=== PATIENT | male | born 1970 | race Caucasian/White ===

== ENCOUNTER 2016-05-06 16:24 | Emergency (ER) | payer OTHER ==
[2016-05-06 16:52] VITALS: BP 100/55; PULSE 60; RESP 18; TEMP 97.8
[2016-05-06] MEDS ORDERED: ORPHENADRINE 30 MG/ML 2 ML VIAL IM STA (17:07)
[2016-05-06] MEDS ORDERED: KETOROLAC 60 MG/2 ML VIAL IM STA (17:07)
--- NOTE | 2016-05-06 17:11 | ED ---
General Adult HPI - General Chief complaint: Back Pain/Injury Stated complaint: Back Pain Time Seen by Provider: 05/06/16 16:58 Source: patient, RN notes reviewed Mode of arrival: ambulatory - History of Present Illness Initial comments: This is a 45-year-old male who presents with acute on chronic lower back pain. Patient states he's just been on his feet more at work and denies any trauma or injury to the lower back. Patient denies any change in bowel or bladder function, loss of sensation in the saddle area, numbness/tingling/weakness to bilateral lower or upper extremities. Patient denies any radicular pain. Patient states the pain is worse to the left side of his back. Patient is able to ambulate. Patient normally takes tramadol at home and states he has a pain contract with Dr. Cantrell. Patient denies any aspirin ALLERGY, history of asthma, kidney problems or bleeding ulcers. Patient denies any recent fever, chills, shortness breath, chest pain, abdominal pain, nausea/vomiting/diarrhea, hematuria, headache, or visual changes, or any other complaints. - Related Data Home Medications Medication Instructions Recorded Confirmed traMADol HCL [Ultram] 50 mg PO TID PRN 05/06/16 05/06/16 Allergies Allergy/AdvReac Type Severity Reaction Status Date / Time No Known Allergies Allergy Verified 05/06/16 17:04 Review of Systems ROS Statement: Those systems with pertinent positive or pertinent negative responses have been documented in the HPI. ROS Other: All systems not noted in ROS Statement are negative. Past Medical History Past Medical History: COPD Additional Past Medical History / Comment(s): chronic back and neck pain History of Any Multi-Drug Resistant Organisms: None Reported Past Surgical History: No Surgical Hx Reported Past Psychological History: No Psychological Hx Reported Smoking Status: Current every day smoker Past Alcohol Use History: None Reported Past Drug Use History: None Reported General Exam - General Exam Comments Initial Comments: General: The patient is awake and alert, in no distress, and does not appear acutely ill. Neck: The neck is supple, there is no tenderness or JVD. Cardiovascular: There is a regular rate and rhythm. No murmur, rub or gallop is appreciated. Respiratory: Lungs are clear to auscultation, respirations are non-labored, breath sounds are equal. No wheezes, stridor, rales, or rhonchi. Musculoskeletal: Patient has tenderness to the left side paraspinal muscles. Patient has full range of motion, strength 5/5 and Sensation intact. Radial pulses are 2+ bilaterally. Patient is ambulatory in the EC. Neurological: A&O x 3. CN II-XII intact, There are no obvious motor or sensory deficits. Coordination appears grossly intact. Speech is normal. Skin: Skin is warm and dry and no rashes or lesions are noted. Psychiatric: Normal mood and affect. Course Vital Signs 05/06/16 16:48 Temperature 97.8 F Pulse Rate 60 Respiratory 18 Rate Blood Pressure 100/55 O2 Sat by Pulse 99 Oximetry Medical Decision Making - Medical Decision Making This is a 45-year-old male presents with acute on chronic lower back pain. On physical exam patient has tenderness to the left side paraspinal muscles. Patient has full range of motion, strength 5/5 and Sensation intact. Radial pulses are 2+ bilaterally. Patient is ambulatory in the EC. Patient was given Toradol and Norflex in the EC today. Patient has tramadol at home for pain. I discussed heating pads. I discussed return parameters. I discussed the patient should follow-up with his primary care doctor in 1-2 days or return to the EC for any worsening symptoms or for any further concerns. Patient was receptive to this plan patient will be discharged home. Disposition Clinical Impression: Chronic back pain Disposition: HOME SELF-CARE Condition: Good Instructions: Chronic Back Pain (ED) Additional Instructions: Please use heating pads to the area. Please continue your normal at home pain medications. Please follow-up with family doctor in the next 2 days of symptoms have not improved. Please return to emergency room if the symptoms increase or worsen or for any other concerns. Referrals: None,Stated [Primary Care Provider] - 1-2 days Norberto Acosta MD [STAFF PHYSICIAN] - 1-2 days Time of Disposition: 17:11
== END 2016-05-06 17:22 | disposition home or self-care (01) ==
LOC: EC 16:24
DX: G89.29 Other chronic pain (principal); M54.5 Low back pain; F17.200 Nicotine dependence, unspecified, uncomplicated
CPT/HCPCS: 99283; 96372 ×2; J2360; J1885

== ENCOUNTER 2019-12-17 13:04 | Emergency (ER) | payer OTHER ==
[2019-12-17 13:09] VITALS: BP 145/73; PULSE 77; RESP 18; TEMP 97.3
[2019-12-17] MEDS ORDERED: KETOROLAC 15 MG/ML 1 ML VIAL IM STA (13:29)
[2019-12-17] MEDS ORDERED: LIDOCAINE 5% PATCH TOPICAL STA (13:30)
--- NOTE | 2019-12-17 13:31 | ED ---
General Adult HPI - General Chief complaint: Back Pain/Injury Stated complaint: back pain Time Seen by Provider: 12/17/19 13:05 Source: patient Mode of arrival: ambulatory Limitations: no limitations - History of Present Illness Initial comments: Patient is a 49-year-old male with past history of COPD and chronic back pain who presents to the emergency room with her back pain. 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 He was bending and lifting earlier this week when he had sudden onset of right-sided back pain. States it radiates into his right leg. Patient denies any weakness, numbness or tingling into his legs. No saddle anesthesia. No bowel or bladder incontinence. No fevers or chills. Denies drug use. Denies any anterior abdominal pain. No testicular pain or swelling. No other alleviating, Percepting or modifying factors - Related Data Home Medications Medication Instructions Recorded Confirmed traMADol HCL [Ultram] 50 mg PO TID PRN 05/06/16 05/06/16 Previous Rx's Medication Instructions Recorded Cyclobenzaprine [Flexeril] 10 mg PO TID PRN #15 tab 12/17/19 Allergies Allergy/AdvReac Type Severity Reaction Status Date / Time No Known Allergies Allergy Verified 12/17/19 13:06 Review of Systems ROS Statement: Those systems with pertinent positive or pertinent negative responses have been documented in the HPI. ROS Other: All systems not noted in ROS Statement are negative. Past Medical History Past Medical History: COPD Additional Past Medical History / Comment(s): chronic back and neck pain History of Any Multi-Drug Resistant Organisms: None Reported Past Surgical History: No Surgical Hx Reported Past Psychological History: No Psychological Hx Reported Smoking Status: Current some day smoker Past Alcohol Use History: None Reported Past Drug Use History: None Reported General Exam Limitations: no limitations General appearance: alert, in no apparent distress Head exam: Present: atraumatic, normocephalic, normal inspection Eye exam: Present: normal appearance, PERRL, EOMI. Absent: scleral icterus, conjunctival injection, periorbital swelling ENT exam: Present: normal exam, mucous membranes moist Neck exam: Present: normal inspection. Absent: tenderness, meningismus, lymphadenopathy Respiratory exam: Present: normal lung sounds bilaterally. Absent: respiratory distress, wheezes, rales, rhonchi, stridor Cardiovascular Exam: Present: regular rate, normal rhythm, normal heart sounds. Absent: systolic murmur, diastolic murmur, rubs, gallop, clicks GI/Abdominal exam: Present: soft, normal bowel sounds. Absent: distended, tenderness, guarding, rebound, rigid Extremities exam: Present: normal inspection, full ROM, normal capillary refill, other (5/5 strength b/l le). Absent: tenderness, pedal edema, joint swelling, calf tenderness Back exam: Present: normal inspection Neurological exam: Present: alert, oriented X3, CN II-XII intact Psychiatric exam: Present: normal affect, normal mood Skin exam: Present: warm, dry, intact, normal color. Absent: rash Course Vital Signs 12/17/19 13:05 Temperature 97.3 F L Pulse Rate 77 Respiratory 18 Rate Blood Pressure 145/73 O2 Sat by Pulse 99 Oximetry Medical Decision Making - Medical Decision Making Upon arrival the patient is placed into room 28. A thorough history and physical exam is performed. Patient has intact strength, sensation, ROM. X- rays are performed which demonstrates some disc narrowing. No acute fracture. Results are discussed with patient. He was given a Lidoderm patch and a shot of Toradol. Patient was also given a [facility] [place] starter pack. Patient will be discharged home in leads follow up with primary care doctor. Primary care doctor may consider MRI. Return to the emergency room for any new or worsening symptoms. No heavy lifting. Warm compresses to the site. Patient was discharged in stable condition Disposition Clinical Impression: Back pain Disposition: HOME SELF-CARE Condition: Stable Instructions (If sedation given, give patient instructions): Acute Low Back Pain (ED) Additional Instructions: Please follow up with your primary care doctor. No heavy lifting. Place warm compresses to the site. Return to the emergency room for any new or worsening symptoms Prescriptions: Cyclobenzaprine [Flexeril] 10 mg PO TID PRN #15 tab PRN Reason: Muscle Spasm Is patient prescribed a controlled substance at d/c from ED?: No Referrals: None,Stated [Primary Care Provider] - 1-2 days Oumar Scott MD [REFERRING] - 1-2 days Hesham Urias DO [Doctor of Osteopathic Medicine] - 1-2 days Time of Disposition: 14:40
--- NOTE | 2019-12-17 14:07 | XR ---
EXAMINATION TYPE: XR lumbosacral spine min 4V DATE OF EXAM: 12/17/2019 CLINICAL HISTORY: Back pain after lifting injury TECHNIQUE: Frontal, lateral, and oblique images of the lumbar spine are obtained. COMPARISON: Lumbar spine x-ray August 20, 2014 FINDINGS: There are 5 lumbar type vertebral bodies redemonstrated. Persistent bilateral pars defects with grade 1 retrolisthesis L4 on L5 and smaller grade 1 anterolisthesis L5 on S1 redemonstrated. Mo derate disc space narrowing L5-S1 level redemonstrated. Mild to moderate multilevel anterior spurring L2-L3 and L3-L4 levels with some interval progression from prior study. Mild disc space narrowing L2 -L3 level redemonstrated. Oblique images appear within normal limits. No acute fracture or dislocatio n is evident. Overlying soft tissue is unremarkable. IMPRESSION: As above.
[2019-12-17] MEDS ORDERED: CYCLOBENZAPRINE 10MG STARTER 3 TAB BTL PO STA (14:37)
== END 2019-12-17 15:07 | disposition home or self-care (01) ==
LOC: EC 13:04
DX: M99.73 Connective tissue and disc stenosis of intervertebral foramina of lumbar region (principal); G89.29 Other chronic pain; M54.9 Dorsalgia, unspecified; M54.2 Cervicalgia; F17.200 Nicotine dependence, unspecified, uncomplicated
CPT/HCPCS: 99283; 96372; 72110; J1885

== ENCOUNTER 2022-01-27 04:33 | Emergency (ER) | payer OTHER ==
[2022-01-27 04:39] VITALS: BP 139/84; PULSE 93; RESP 18; TEMP 98.5
[2022-01-27] MEDS ORDERED: TRIAMCINOLONE ACET 0.1% OINTMENT 15 GM TUBE TOPICAL STA (05:08)
--- NOTE | 2022-01-27 05:09 | ED ---
Skin/Abscess/FB HPI - General Chief complaint: Skin/Abscess/Foreign Body Stated complaint: Dermatitis Both Hands Time Seen by Provider: 01/27/22 05:05 Source: patient, RN notes reviewed, old records reviewed Mode of arrival: ambulatory Limitations: no limitations - History of Present Illness Initial comments: This is a 51-year-old male DF for evaluation of rash both hands surfaces of the hand spreading up the arm. 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 Patient has had a history of psoriasis but this is worse as his been MD complaint: rash (Bilateral hands) -: week(s) Location: L hand, R hand Severity: severe Severity scale (1-10): 9 Quality: other (Itching) Consistency: constant Improves with: none Worsens with: none Context: none Associated symptoms: denies other symptoms Treatments Prior to Arrival: bandages, OTC topical medication - Related Data Home Medications Medication Instructions Recorded Confirmed traMADol HCL [Ultram] 50 mg PO TID PRN 05/06/16 05/06/16 Previous Rx's Medication Instructions Recorded Cyclobenzaprine [Flexeril] 10 mg PO TID PRN #15 tab 12/17/19 Allergies Allergy/AdvReac Type Severity Reaction Status Date / Time No Known Allergies Allergy Verified 01/27/22 04:39 Review of Systems ROS Statement: Those systems with pertinent positive or pertinent negative responses have been documented in the HPI. ROS Other: All systems not noted in ROS Statement are negative. Past Medical History Past Medical History: COPD Additional Past Medical History / Comment(s): chronic back and neck pain History of Any Multi-Drug Resistant Organisms: None Reported Past Surgical History: No Surgical Hx Reported Past Psychological History: No Psychological Hx Reported Smoking Status: Current every day smoker Past Alcohol Use History: None Reported Past Drug Use History: Marijuana General Exam Limitations: no limitations General appearance: alert, in no apparent distress Head exam: Present: atraumatic, normocephalic, normal inspection Eye exam: Present: normal appearance, PERRL, EOMI. Absent: scleral icterus, conjunctival injection, periorbital swelling ENT exam: Present: normal exam, mucous membranes moist Neck exam: Present: normal inspection. Absent: tenderness, meningismus, ly mphadenopathy Respiratory exam: Present: normal lung sounds bilaterally. Absent: respiratory distress, wheezes, rales, rhonchi, stridor Cardiovascular Exam: Present: regular rate, normal rhythm, normal heart sounds. Absent: systolic murmur, diastolic murmur, rubs, gallop, clicks GI/Abdominal exam: Present: soft, normal bowel sounds. Absent: distended, tenderness, guarding, rebound, rigid Extremities exam: Present: normal inspection, full ROM, normal capillary refill, other (Severe edema swelling sloughing of skin both hands severe psoriasis itching rash). Absent: tenderness, pedal edema, joint swelling, calf tenderness Back exam: Present: normal inspection Neurological exam: Present: alert, oriented X3, CN II-XII intact Psychiatric exam: Present: normal affect, normal mood Skin exam: Present: warm, dry, intact, normal color. Absent: rash Course Vital Signs 01/27/22 04:38 Temperature 98.5 F Pulse Rate 93 Respiratory 18 Rate Blood Pressure 139/84 O2 Sat by Pulse 96 Oximetry - Reevaluation(s) Reevaluation #1: 01/27/22 05:16 Medical record is reviewed Reevaluation #2: 01/27/22 05:16 Patient informed of results and questions answered Reevaluation #3: 01/27/22 05:16 No change in symptoms here in the ER Medical Decision Making - Medical Decision Making 51 male to the emergency department for evaluation for rash to hands. Patient is severe and rash psoriasis of both hands likely exposure comical exposure exacerbating condition. Patient replacement steroid cream encouraged to use gloves at night and can be discharged home Disposition Clinical Impression: Nonpustular psoriasis of hands and feet, Psoriasis Narrative: Bilateral Hands Psoriasis severe Disposition: HOME SELF-CARE Condition: Good Instructions (If sedation given, give patient instructions): Psoriasis (ED), Seborrheic Dermatitis (DC) Is patient prescribed a controlled substance at d/c from ED?: No Referrals: None,Stated [Primary Care Provider] - 1-2 days Time of Disposition: 05:20
== END 2022-01-27 05:39 | disposition home or self-care (01) ==
LOC: EC 04:33
DX: L40.9 Psoriasis, unspecified (principal); J44.9 Chronic obstructive pulmonary disease, unspecified; F17.200 Nicotine dependence, unspecified, uncomplicated; F12.90 Cannabis use, unspecified, uncomplicated
CPT/HCPCS: 99282

== ENCOUNTER 2022-07-26 16:39 | Emergency (ER) | payer OTHER ==
[2022-07-26 16:47] VITALS: BP 134/84; PULSE 58; RESP 18; TEMP 97.3
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
== END 2022-07-26 19:11 | disposition home or self-care (01) ==
LOC: EC 16:39
DX: S01.81XA Laceration without foreign body of other part of head, initial encounter (principal); J44.9 Chronic obstructive pulmonary disease, unspecified; F12.90 Cannabis use, unspecified, uncomplicated; F17.200 Nicotine dependence, unspecified, uncomplicated; W19.XXXA Unspecified fall, initial encounter; Y93.55 Activity, bike riding
CPT/HCPCS: 70450; 72125; 99283

== ENCOUNTER 2024-05-28 13:51 | Emergency (ER) | payer OTHER ==
[2024-05-28 13:55] VITALS: TEMP 97.9
--- NOTE | 2024-05-28 14:47 | ED ---
General Adult HPI - General Chief complaint: Wound/Laceration Stated complaint: L Hand Lac. Time Seen by Provider: 05/28/24 13:56 Source: patient Mode of arrival: ambulatory Limitations: no limitations - History of Present Illness Initial comments: 53-year-old male presents to the emergency department for evaluation of left hand laceration. Patient states that he reached into his sink and cut his hand on an object in the sink. He reports normal range of motion to all of his fingers and wrist. He is unsure when he last had a tetanus vaccine. - Related Data Home Medications Medication Instructions Recorded Confirmed No Known Home Medications 03/20/22 07/26/22 Allergies Allergy/AdvReac Type Severity Reaction Status Date / Time No Known Allergies Allergy Verified 05/28/24 13:55 Review of Systems ROS Statement: Those systems with pertinent positive or pertinent negative responses have been documented in the HPI. ROS Other: All systems not noted in ROS Statement are negative. Past Medical History Past Medical History: COPD Additional Past Medical History / Comment(s): chronic back and neck pain History of Any Multi-Drug Resistant Organisms: None Reported Past Surgical History: No Surgical Hx Reported Additional Past Anesthesia/Blood Transfusion Reaction / Comment(s): NO ANESTH IN THE PAST Past Psychological History: No Psychological Hx Reported Smoking Status: Current every day smoker Past Alcohol Use History: Rare Past Drug Use History: Marijuana General Exam Limitations: no limitations General appearance: alert, in no apparent distress Head exam: Present: atraumatic, normocephalic, normal inspection Eye exam: Present: normal appearance, PERRL, EOMI. Absent: scleral icterus, conjunctival injection, periorbital swelling ENT exam: Present: normal exam, mucous membranes moist Respiratory exam: Present: normal lung sounds bilaterally. Absent: respiratory distress, wheezes, rales, rhonchi, stridor Cardiovascular Exam: Present: regular rate, normal rhythm, normal heart sounds. Absent: systolic murmur, diastolic murmur, rubs, gallop, clicks Extremities exam: Present: full ROM, normal capillary refill, other (3 cm laceration to the anterior aspect of the left hand). Absent: tenderness Neurological exam: Present: alert, oriented X3 Psychiatric exam: Present: normal affect, normal mood Skin exam: Present: warm, dry. Absent: intact (Above) Course Vital Signs 04/03/25 04/03/25 13:53 16:06 Temperature 97.9 F Pulse Rate 71 54 L Respiratory 18 16 Rate Blood Pressure 127/65 132/84 O2 Sat by Pulse 98 98 Oximetry Medical Decision Making - Medical Decision Making Was pt. sent in by a medical professional or institution (KEVIN Echols, [employer], urgent care, hospital, or detention...) When possible be specific @ -No Did you speak to anyone other than the patient for history (EMS, parent, family, police, friend...)? What history was obtained from this source @ -No Did you review nursing and triage notes (agree or disagree)? Why? @ -I reviewed and agree with nursing and triage notes Were old charts reviewed (outside hosp., previous admission, EMS record, old EKG, old radiological studies, urgent care reports/EKG's, detention records)? Report findings @ -No old charts were reviewed Differential Diagnosis (chest pain, altered mental status, abdominal pain women, abdominal pain men, vaginal bleeding, weakness, fever, dyspnea, syncope, headache, dizziness, GI bleed, back pain, seizure, CVA, palpatations, mental health, musculoskeletal)? @ -Laceration, abrasion, tendon injury, fracture, this list is not all inclus dirk EKG interpreted by me (3pts min.). @ -None X-rays interpreted by me (1pt min.). @ -None done CT interpreted by me (1pt min.). @ -None done U/S interpreted by me (1pt. min.). @ -None done What testing was considered but not performed or refused? (CT, X-rays, U/S, labs)? Why? @ -None What meds were considered but not given or refused? Why? @ -None Did you discuss the management of the patient with other professionals (professionals i.e. KEVIN Echols, [employer], lab, RT, psych nurse, perinatal social worker, vehicle operator, teacher, legal officer, complex case manager)? Give summary @ -No Was smoking cessation discussed for >3mins.? @ -No Was critical care preformed (if so, how long)? @ -No Were there social determinants of health that impacted care today? How? (Homelessness, low income, unemployed, alcoholism, drug addiction, transportation, low edu. Level, literacy, decrease access to med. care, senior living, rehab)? @ -No Was there de-escalation of care discussed even if they declined (Discuss DNR or withdrawal of care, Hospice)? DNR status @ -No What co-morbidities impacted this encounter? (DM, HTN, Smoking, COPD, CAD, Cancer, CVA, ARF, Chemo, Hep., AIDS, mental health diagnosis, sleep apnea, morbid obesity)? @ -None Was patient admitted / discharged? Hospital course, mention meds given and route, prescriptions, significant lab abnormalities, going to OR and other pertinent info. @ -Discharge. Patient presented the emergency department for evaluation of hand laceration. The wound was cleaned. Skin glue was applied. Patient was updated on tetanus vaccine. Advised on wound care. He will be discharged home. He is understanding agreeable with this plan. Patient stable at time of discharge. Case discussed with Dr. Renee Undiagnosed new problem with uncertain prognosis? @ -No Drug Therapy requiring intensive monitoring for toxicity (Heparin, Nitro, Insulin, Cardizem)? @ -No Were any procedures done? @ -No Diagnosis/symptom? @ -Laceration Acute, or Chronic, or Acute on Chronic? @ -Acute Uncomplicated (without systemic symptoms) or Complicated (systemic symptoms)? @ -Uncomplicated Side effects of treatment? @ -No Exacerbation, Progression, or Severe Exacerbation? @ -No Poses a threat to life or bodily function? How? (Chest pain, [place], [place], pneumonia, PE, COPD, DKA, ARF, appy, cholecystitis, CVA, Diverticulitis, Homicidal, Suicidal, threat to staff... and all critical care pts) @ -No Disposition Clinical Impression: Laceration Disposition: HOME SELF-CARE Condition: Stable Instructions (If sedation given, give patient instructions): Skin Adhesive Care (ED) Additional Instructions: Please keep wound clean and dry Be on the look out for signs of infection including redness, discharge, increased pain. Please follow-up with your primary care provider. Return to the emergency department for new or worsening symptoms. Is patient prescribed a controlled substance at d/c from ED?: No Referrals: None,Stated [Primary Care Provider] - 1-2 days
[2024-05-28] MEDS: DIPH,PERTUS(ACELL)TETVAC-LF 0.5 ML VIAL IM ONE (15:09)
[2024-05-28] MEDS: TOPICAL SKIN ADHESIVE 1 EACH AMP TOPICAL ONE (15:11)
[2024-05-28 16:10] VITALS: BP 132/84; PULSE 54; RESP 16
== END 2024-05-28 16:10 | disposition home or self-care (01) ==
LOC: EC 13:51
DX: S61.412A Laceration without foreign body of left hand, initial encounter (principal); F17.200 Nicotine dependence, unspecified, uncomplicated; Z23 Encounter for immunization; Y92.018 Other place in single-family (private) house as the place of occurrence of the external cause
CPT/HCPCS: 90471; 90715; 99283